=== PATIENT | male | born 2000 | race Two or more races ===

== ENCOUNTER 2023-05-11 18:57 | Emergency (ER) | payer MEDICAID, SELFPAY ==
[2023-05-11 19:07] VITALS: BP 138/70; PULSE 53; RESP 18; TEMP 36.4; O2SAT 96; BMI 24.1
--- NOTE | 2023-05-11 19:08 | ED.SKABFB ---
HPI - Skin/Abscess/Foreign Bdy General Chief complaint: Skin/Abscess/Foreign Body Stated complaint: Cyst Time Seen by Provider: 05/11/23 21:19 Source: patient Mode of arrival: ambulatory Limitations: no limitations History of Present Illness MD complaint: abscess/boil Onset (ago): day(s) (Last few days worse today) Location: buttocks (Pilonidal aspect) Severity: severe Severity scale (1-10): >10 Quality: aching and constant Pain Consistency: constant Relieving factors: none Exacerbating factors: palpation, movement and other (Or sitting down) Context: none Associated symptoms: denies other symptoms Treatments prior to arrival: none Related Data Previous Rx's Medication Instructions Recorded cephalexin 500 mg capsule 500 mg PO Q6H 10 days #40 caps 05/11/23 doxycycline hyclate 100 mg tablet 100 mg PO BID 10 days #20 tabs 05/11/23 ibuprofen 800 mg tablet 800 mg PO Q8H PRN pain #14 tabs 05/11/23 oxycodone 5 mg tablet 5 mg PO Q6H PRN pain #10 tabs 05/11/23 Allergies Allergy/AdvReac Type Severity Reaction Status Date / Time No Known Allergies Allergy Verified 05/11/23 19:07 Review of Systems Review of Systems: Constitutional : Denies history of same, Denies any other sites involved, Denies IV drug use, Denies history of MRSA, Denies swollen glands, Denies injury, Denies Fever, Denies Chills, + Sig Pain, Denies Systemic symptoms Cardiovascular : No Chest Pain, No SOB Respiratory : No Dyspnea Gastrointestinal : No abdominal pain Musculoskeletal : No Joint Swelling Skin : + abscess with surrounding erythema, No skin laceration, No Foreign bodies, No spreading rash, Denies bites, Denies discharge, Neuro : No Weakness, No Numbness/tingling Psych : No SI/HI/thoughts of self injury Yes all other systems are reviewed and are negative PMFSH Past Medical History Attestation statement: The following information was validated with the patient. Source: old records reviewed and nursing notes reviewed Social History Social History Advance Directives: No Advance Directives Information Provided: No Physical Exam Vital Signs: Vital Signs: Last Vital Signs Temp 97.5 F 05/11/23 19:07 Pulse 53 05/11/23 19:07 Resp 18 05/11/23 19:07 BP 138/70 05/11/23 19:07 Pulse Ox 96 05/11/23 19:07 O2 Del Method Room Air 05/11/23 19:07 BMI result Body Mass Index 24.1 vital signs have been reviewed as normal and appeared to be correct. Blood pressure normal Heart rate normal. Respiration rate normal. Temperature normal. Oxygen saturation normal. Appearance: Alert. Oriented X3. No acute distress. Head: Normal external exam. Normocephalic. Atraumatic. Eyes: PERRLA. EOMI. Conjunctiva and sclera normal. Eyelids normal. ENT: Pharynx normal. Uvula midline. Moist mucous membranes. Neck: Normal inspection. Neck supple. FROM. CVS: Normal heart rate and rhythm. Respiratory: No respiratory distress. Painless inspiration. Skin: Skin warm and dry. Normal skin color. Normal skin turgor. Patient with large pilonidal abscess with mild surrounding erythema. No streaking noted. No active drainage noted. No additional rashes/lesions/lacerations noted. Extremities: Extremities exhibit normal range of motion. Extremities nontender. Neuro: Oriented X 3. No motor deficit. No sensory deficit. Reflexes normal. Normal steady gait. No focal neuro deficits noted. Vascular: + radial pulses/+ 2 distal pedal pulses/+2 dorsalis pedis b/l. Normal cap refill. No cyanosis noted to upper extremity nails and lower extremity toes nails. Course Course Course Narrative: IMP/Plan: abscess. No systemic toxicity, and pt looks well. + surrounding cellulitis. Not c/w nec fasc/ myositis/ DVT/ osteomyelitis. patient now status post I&D of abscess and patient tolerated procedure well. No complications. No labs or imaging indicated at this time. Will DC home antibiotics and symptomatic treatment instructions return if any new or worsening symptoms to follow up with primary care provider. Patient understands agrees this plan. Medications Administered Discontinued Medications Generic Name Dose Route Start Last Admin Trade Name Freq PRN Reason Stop Dose Admin Lidocaine HCl 15 ml 05/11/23 19:09 05/11/23 19:44 Lidocaine Hcl 1 % Mpf 5 Ml Vial SUBCUT 05/11/23 19:10 15 ml ONCE ONE Administration Medical Decision Making Prescription Management I considered prescription management with: Pain Medication and Antibiotic Social Determinants Patient?s care significantly limited by Social Determinants of Health including: Other Social Determinant of Health Procedures Abscess I/D Site: other (Pilonidal) Local Anesthetic: lidocaine 1% Amount of anesthesia used (mL): 10 Technique: needle aspiration and incised with blade Amount of fluid expressed (mL): 20 Sent for culture/gram staining?: No Irrigation: Yes Packing used?: iodoform (Approximately 1-2 inches) Complications: other (No complications patient tolerated procedure well) Discharge Plan Discharge Clinical Impression: Pilonidal abscess Patient Disposition: Home, Self-Care Instructions: Pilonidal Cyst (ED) Prescriptions: New doxycycline hyclate 100 mg tablet 100 mg PO BID 10 Days Qty: 20 0RF cephalexin 500 mg capsule 500 mg PO Q6H 10 Days Qty: 40 0RF ibuprofen 800 mg tablet 800 mg PO Q8H PRN (Reason: pain) Qty: 14 0RF oxycodone 5 mg tablet 5 mg PO Q6H PRN (Reason: pain) Qty: 10 0RF Rx Instructions: Partial Fill upon patient request. Referrals: [facility] [Provider Group] - 2 days (Call tomorrow to make a follow-up appointment within 2 days if you can make an appointment with them you do not need to follow-up with us if you cannot you can follow-up with us although still make an appointment with them so they can continue following your wound) Sanjana Fletcher PA [Emergency Midlevel Provider] - 2 days (for wound check/packing removal) Stand Alone Forms: Work/School Release
[2023-05-11] MEDS: Lidocaine HCl 1 % MPF 5 ML VIAL 15 ML SUBCUT (19:44)
[2023-05-11] MEDS: Ibuprofen 800 MG TABLET PO (21:29)
[2023-05-11] MEDS: cephALEXin 500 MG CAPSULE PO (21:29)
[2023-05-11] MEDS: Doxycycline Monohydrate 100 MG CAPSULE PO (21:29)
--- NOTE | 2023-05-11 21:37 | PC.NURSE ---
pt refused Oxy 5mg- wasted with Lindsey, RN
== END 2023-05-11 21:37 | disposition home or self-care (01) ==
PROVIDERS: Emergency Provider Emergency Medicine
DX: L05.01 Pilonidal cyst with abscess (principal)
CPT/HCPCS: 10080; 99283

== ENCOUNTER 2023-05-14 05:58 | Emergency (ER) | payer MEDICAID, SELFPAY ==
[2023-05-14 06:09] VITALS: BP 124/46; PULSE 61; RESP 16; TEMP 37.1; O2SAT 97; BMI 24.0
--- NOTE | 2023-05-14 07:10 | ED_ITS ---
HPI - Skin/Abscess/Foreign Bdy General Chief complaint: Skin/Abscess/Foreign Body Stated complaint: wound check Time Seen by Provider: 05/14/23 06:37 Source: patient Mode of arrival: ambulatory Limitations: no limitations History of Present Illness HPI narrative: This is a 23-year-old male presenting for packing removal, patient was seen here on 05/11/2023 was told he had a pilonidal cyst, had an incision and drainage and packing was applied. Patient has no medical complaints. States he is feeling much better. Has follow-up with outpatient providers. Denies fevers, chills, numbness, tingling. Related Data Previous Rx's Medication Instructions Recorded cephalexin 500 mg capsule 500 mg PO Q6H 10 days #40 caps 05/11/23 doxycycline hyclate 100 mg tablet 100 mg PO BID 10 days #20 tabs 05/11/23 ibuprofen 800 mg tablet 800 mg PO Q8H PRN pain #14 tabs 05/11/23 oxycodone 5 mg tablet 5 mg PO Q6H PRN pain #10 tabs 05/11/23 Allergies Allergy/AdvReac Type Severity Reaction Status Date / Time No Known Allergies Allergy Verified 05/11/23 19:07 Review of Systems Review of Systems: Constitutional : No Weight loss, No Fever, No Chills, No Fatigue, No Malaise ENT/Mouth : No sore throat, No Rhinorrhea Eyes: No Eye Pain, No Swelling, No Redness Cardiovascular : No Chest Pain, No SOB, No Dyspnea on Exertion, No Orthopnea, No Edema, No Palpitations Respiratory : No Cough, No Sputum, No Wheezing Gastrointestinal : No Nausea, No Vomiting, No Diarrhea, No Constipation, No abdominal Pain, No Hematochezia, No Melena Genitourinary : No Dysuria, No Urinary Frequency, No Hematuria, Musculoskeletal : No joint pain, No Myalgias, No Joint Swelling Skin : No Skin Lesions, No rash, + abscess Neuro : No Weakness, No Numbness, No Dizziness, No Headache Psych : No Anxiety/Panic, No Depression All other systems reviewed and are negative Yes all other systems are reviewed and are negative [facility] Past Medical History Attestation statement: The following information was validated with the patient. Source: old records reviewed and nursing notes reviewed Social History Social History Advance Directives: No Advance Directives Information Provided: No Physical Exam Vital Signs: Vital Signs: Last Vital Signs Temp 98.8 F 05/14/23 06:09 Pulse 61 05/14/23 06:09 Resp 16 05/14/23 06:09 BP 124/46 L 05/14/23 06:09 Pulse Ox 97 05/14/23 06:09 O2 Del Method Room Air 05/14/23 06:09 BMI result Body Mass Index 24.0 vss Appearance: Alert.? Oriented X3.? No acute distress.? Head: Normocephalic, atraumatic, no step-offs or deformities Eyes: Pupils equal, round and reactive to light.? ENT: Pharynx normal.? Neck: Normal inspection.? Neck supple.? CVS: Normal heart rate and rhythm.? Pulses normal.? Respiratory: No respiratory distress.? Breath sounds normal.? Abdomen: Soft and nontender.? Skin: Skin warm and dry.? Normal skin color.? Normal skin turgor.?+ large pilonidal healing cyst with no surrounding erythema, packing in place. No streaking noted. No active drainage noted. Extremities: No lower extremity edema.? No calf ttp. 5/5 strength to bilateral upper and lower extremities Back: No midline tenderness, no C-spine tenderness, full range of motion, no CVA tenderness bilaterally Neuro: Oriented X 3.? No motor deficit.? No sensory deficit. CN 2-12 intact Course Reevaluation(s) Reevaluation #1: Patient currently on doxycycline encouraged him to come please his antibiotics fully without missing any doses. Advised him to follow-up with outpatient providers. Educated patient on diagnosis and treatment plan, answered all question, patient verbalizes understanding. At this time patient will be discharged home, advised to return with new or worsening symptoms. Educated on worrisome signs and symptoms and when to return. At this time I feel comfortable discharge home. Time: 07:13 Medical Decision Making Medical Decision Making [facility] Narrative: 07 23-year-old male presents for packing removal. No medical complaints. Physical exam significant for large pilonidal healing cyst with no surrounding erythema, packing in place. No streaking noted. No active drainage noted. This is likely a healing pilonidal cyst, no signs of erythema, necrotizing inf ection. Unlikely gangrene, osteomyelitis. Patient well appearing. Plan at this time packing removal. Differential Diagnosis Differential Diagnoses: The differential diagnosis associated with the presentation includes This is likely a healing pilonidal cyst, no signs of erythema, necrotizing infection. Unlikely gangrene, osteomyelitis. Admission/Observation Consideration of admission/observation: Escalation of care including admission/observation considered Unlikely Core Measures AMI core measures followed: Yes Measure exclusions: not indicated Discharge Plan Discharge Clinical Impression: Abscess packing removal Patient Disposition: Home, Self-Care Additional Instructions: Take your medications as prescribed. If you were prescribed antibiotics today, it is important that you take your medication to their entirety, do not skip any doses, do not finish them early. Follow-up with your primary care provider this week. Follow-up with general surgery. Return to the emergency department with new or worsening symptoms. Such as fevers, chills, chest pain, shortness of breath, nausea, vomiting, dizziness, headache, vision changes, lethargy In case of emergency call 911 Continue your antibiotics. Prescriptions: No Action doxycycline hyclate 100 mg tablet 100 mg PO BID 10 Days Qty: 20 0RF cephalexin 500 mg capsule 500 mg PO Q6H 10 Days Qty: 40 0RF ibuprofen 800 mg tablet 800 mg PO Q8H PRN (Reason: pain) Qty: 14 0RF oxycodone 5 mg tablet 5 mg PO Q6H PRN (Reason: pain) Qty: 10 0RF Rx Instructions: Partial Fill upon patient request. Referrals: Physician,Unknown J [Primary Care Provider] - 2 days Stand Alone Forms: Work/School Release
== END 2023-05-14 07:23 | disposition home or self-care (01) ==
PROVIDERS: Emergency Provider Emergency Medicine
DX: Z48.00 Encounter for change or removal of nonsurgical wound dressing (principal); L05.91 Pilonidal cyst without abscess
CPT/HCPCS: 99282

== ENCOUNTER 2023-06-03 22:16 | Emergency (ER) | payer OTHER, MEDICAID, SELFPAY ==
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
[2023-06-03 22:26] VITALS: BP 138/64; PULSE 70; O2SAT 98
[2023-06-03 22:37] VITALS: BP 126/67; PULSE 65; RESP 16; TEMP 37.4; O2SAT 95; BMI 24.4
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
== END 2023-06-04 01:15 | disposition home or self-care (01) ==
PROVIDERS: Emergency Provider Emergency Medicine
DX: S13.4XXA Sprain of ligaments of cervical spine, initial encounter (principal); M54.2 Cervicalgia; V43.62XA Car passenger injured in collision with other type car in traffic accident, initial encounter; Y93.9 Activity, unspecified; Y92.410 Unspecified street and highway as the place of occurrence of the external cause; Y99.9 Unspecified external cause status
CPT/HCPCS: 72125; 99284

== ENCOUNTER 2023-12-14 14:26 | Emergency (ER) | payer SELFPAY ==
--- NOTE | ~2023-12-14 | XR_ITS ---
EXAMINATION: XR CHEST CLINICAL INFORMATION: Productive cough COMPARISON: None available. TECHNIQUE: 2 views of the chest were obtained. FINDINGS: No significant abnormality is noted involving the heart, lungs, mediastinum, bony thorax or soft tissues. XR/XR chest 2V IMPRESSION: Unremarkable examination.
--- NOTE | 2023-12-14 14:46 | ED_ITS ---
HPI - Nausea/Vomiting/Diarrhea General Chief complaint: General Medical Stated complaint: Nausea, diarrhea, congestion Time Seen by Provider: 12/14/23 15:12 Source: patient Mode of arrival: ambulatory Limitations: no limitations History of Present Illness HPI Narrative: 23-year-old male previously healthy here with complaints of 4 days of cough and congestion, body aches, nausea and diarrhea. No recent travel or sick contact. No abdominal pain, chest pain, shortness of breath, headache, fever, neck pain, neck stiffness, skin rash. Associated nausea: Yes Related Data Previous Rx's Medication Instructions Recorded cephalexin 500 mg capsule 500 mg PO Q6H 10 days #40 caps 05/11/23 doxycycline hyclate 100 mg tablet 100 mg PO BID 10 days #20 tabs 05/11/23 ibuprofen 800 mg tablet 800 mg PO Q8H PRN pain #14 tabs 05/11/23 oxycodone 5 mg tablet 5 mg PO Q6H PRN pain #10 tabs 05/11/23 Allergies Allergy/AdvReac Type Severity Reaction Status Date / Time No Known Allergies Allergy Verified 12/14/23 14:45 Review of Systems Review of Systems: Yes all other systems are reviewed and are negative Constitutional: Constitutional: Reports no additional constitutional complaints, Reports body ache(s), Denies chills, Denies fever(s), Denies headache(s) and Denies weakness Eyes: Eyes: Reports no additional eye complaints and Denies change in vision ENT: Reports system reviewed and no additional complaints, except as documented, Denies dizziness, Denies headache(s), Reports nasal congestion, Denies nasal discharge and Denies neck pain Cardiovascular: Cardiovascular: Reports no additional cardiovascular complaint s, Denies chest pain, Denies leg edema and Denies dyspnea Respiratory: Respiratory: Reports no additional respiratory complaints, Reports cough and Denies dyspnea Gastrointestinal: Gastrointestinal: Reports no additional gastrointestinal complaints, Denies abdominal pain, Reports diarrhea, Reports nausea and Denies vomiting Genitourinary: Genitourinary: Denies urinary incontinence Musculoskeletal: Musculoskeletal: Reports no additional musculoskeletal complaints, Denies back pain, Denies arthralgias, Denies joint swelling, Denies neck pain, Denies numbness and Denies tingling Integumentary/Breasts: Skin/Breast: Reports system reviewed and no additional complaints, except as docu and Denies rash Neurologic: Reports system reviewed and no additional complaints, except as documented, Denies Abnormal speech present, Denies dizziness, Denies headache(s), Denies numbness, Denies tingling and Denies weakness PMFSH Past Medical History Attestation statement: The following information was validated with the patient. Source: old records reviewed and nursing notes reviewed Social History Social History Alcohol intake: current Alcohol intake frequency: holidays/special occasions only Substance Use Type: Marijuana Advance Directives: No Advance Directives Information Provided: No Physical Exam Vital Signs: Vital Signs: Last Vital Signs Temp 98.3 F 12/14/23 14:47 Pulse 63 12/14/23 14:47 Resp 14 12/14/23 14:47 BP 121/63 12/14/23 14:47 Pulse Ox 98 12/14/23 14:47 BMI result Body Mass Index 23.6 Const: General: cooperative, healthy appearing, comfortable and no acute distress Orientation/consciousness: patient oriented x3 Limitations: no limitations HEENT: Head: Yes normal to inspection Ears: hearing grossly normal bilaterally and TM's normal bilaterally General nose exam: Normal external nose present Face and sinus: Yes normal facial exam Mouth: Normal oral and palatal mucosa present Throat: Yes posterior oropharynx normal, Yes tonsils normal and Yes uvula midline Eyes: General: appearance normal, both eyes and all related structures Pupils: Equal, round and reactive pupils present Neck: Neck: Yes normal visual inspection, Yes full ROM, Yes no lymphadenopathy and Yes no meningeal signs Chest: Chest palpation & inspection: normal inspection of the chest Resp: Effort & Inspection: normal respiratory effort Auscultation: clear to auscultation bilaterally Cardio: Rate: regular rate Rhythm: regular rhythm Peripheral pulses: Peripheral pulses 2+ throughout GI: Inspection: Yes normal to inspection Palpation (GI): Soft to palpation and nontender Auscultation: normal bowel sounds Back/Spine/Pelvis: Thoracic/Lumbar Spine: thoracic and lumbar spine normal to inspection Skin: General skin exam: no rashes or lesions noted Neuro: General: patient oriented x3, no meningeal signs, no focal motor deficits and normal sensation to monofilament Cranial nerves: Yes Equal, round and reactive pupils present Cognition (Neuro): normal cognition Speech: No Abnormal speech present Gait exam (Neuro): Normal gait present Motor exam (neuro): 5/5 motor strength present throughout Extrem: General: Yes normal to inspection, Yes no pedal edema and Yes no calf tenderness Course Course Course Narrative: RME:?23 yo male here for eval of congestion, subjective fevers, chills, productive cough, nausea, and diarrhea x4 days. sick contacts at home. taking ibuprofen and delsum without relief, last dose of ibuprofen 2 hours ago. denies vomiting. viral swabs, CXR ordered. Full HPI, ROS and PE to be performed by the primary ED provider. Reevaluation(s) Reevaluation #1: Viral testing is negative. Chest x-ray shows no acute finding. Likely viral syndrome. Patient well-appearing, afebrile, nontoxic. Patient be discharged home with recommendations for supportive care. Reviewed worrisome signs and symptoms of when to return to the emergency room. Comfortable plan for discharge home. Medical Decision Making Medical Decision Making [facility] Narrative: 23-year-old male previously healthy here with complaints of 4 days of cough and congestion, body aches, nausea and diarrhea. No recent travel or sick contact. No abdominal pain, chest pain, shortness of breath, headache, fever, neck pain, neck stiffness, skin rash. Exam is benign. VSS Will send viral testing, review CXR from triage Differential Diagnosis Differential Diagnoses: The differential diagnosis associated with the presentation includes viral syndrome, influenza Admission/Observation Consideration of admission/observation: Escalation of care including admission/observation considered Lab Data [facility] Lab Attestation statement: I reviewed the patient's lab results. Labs: Lab Results 12/14/23 Range/Units 14:52 Influenza Type A (PCR) NEGATIVE (Negative) Influenza Type B (PCR) NEGATIVE (Negative) RSV RNA Qual (PCR) NEGATIVE (Negative) SARS-CoV-2 RNA (RT-PCR) NEGATIVE (Negative) Independent Interpretation I performed an independent interpretation of an: Plain X-Ray Interpretation: I independently reviewed the x-ray and agree with the rad report Radiology Impression Discussion of test interpretation with radiology: I have reviewed the radiologist's reading. Radiologist Impression: Productive cough COMPARISON: None available. TECHNIQUE: 2 views of the chest were obtained. FINDINGS: No significant abnormality is noted involving the heart, lungs, mediastinum, bony thorax or soft tissues. XR/XR chest 2V IMPRESSION: Unremarkable examination. Tests considered The following testing was considered but not selected: no focal abdominal pain to suggest need to CT A/P Prescription Management I considered prescription management with: Antibiotic Discharge Plan Discharge Clinical Impression: Acute viral syndrome Patient Disposition: Home, Self-Care Instructions: Viral Syndrome (ED) Additional Instructions: Testing for COVID, flu, RSV are negative. Your chest x-ray shows no signs of infection. You likely have a virus. Please alternate Motrin Tylenol for any pain or fever. Increase fluids, rest. Please return for any worsening symptoms. Prescriptions: No Action doxycycline hyclate 100 mg tablet 100 mg PO BID 10 Days Qty: 20 0RF cephalexin 500 mg capsule 500 mg PO Q6H 10 Days Qty: 40 0RF ibuprofen 800 mg tablet 800 mg PO Q8H PRN (Reason: pain) Qty: 14 0RF oxycodone 5 mg tablet 5 mg PO Q6H PRN (Reason: pain) Qty: 10 0RF Rx Instructions: Partial Fill upon patient request. Referrals: Physician,None [Primary Care Provider] - 5 days Stand Alone Forms: Work/School Release Interventions: ED Discharge Assessment Last Done: 12/14/23 16:09 Discharge Date/Time: 12/14/23 16:09
[2023-12-14 14:47] VITALS: BP 121/63; PULSE 63; RESP 14; TEMP 36.8; O2SAT 98; BMI 23.6
[2023-12-14 15:55] LABS: Influenza A PCR NEGATIVE (Negative); Influenza B PCR NEGATIVE (Negative); Resp Syncy Virus RNA Qual PCR NEGATIVE (Negative); SARS COV2 PCR INHOUSE NEGATIVE (Negative)
== END 2023-12-14 16:09 | disposition home or self-care (01) ==
PROVIDERS: Physician Assistant Medical; Emergency Provider Emergency Medicine
DX: B34.9 Viral infection, unspecified (principal); R11.2 Nausea with vomiting, unspecified; R05.9 Cough, unspecified; R09.81 Nasal congestion; Z20.822 Contact with and (suspected) exposure to COVID-19; Z20.828 Contact with and (suspected) exposure to other viral communicable diseases
CPT/HCPCS: 0241U; 71046; 99282; 99283

== ENCOUNTER 2024-10-31 14:23 | Emergency (ER) | payer MEDICAID, SELFPAY ==
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
[2024-10-31 15:46] VITALS: BP 126/73; PULSE 56; RESP 18; TEMP 36.8; O2SAT 100; BMI 23.2
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
[2024-10-31 18:38] VITALS: BP 126/73; PULSE 56; RESP 18; TEMP 36.8; O2SAT 100
[2024-10-31] MEDS: Ibuprofen 800 MG TABLET PO (19:06)
[2024-10-31 19:07] VITALS: BP 126/73; PULSE 56; RESP 18; TEMP 36.8; O2SAT 100
== END 2024-10-31 19:08 | disposition home or self-care (01) ==
PROVIDERS: Emergency Provider Emergency Medicine Emergency Medical Services
DX: S62.603A Fracture of unspecified phalanx of left middle finger, initial encounter for closed fracture (principal); M79.642 Pain in left hand; Y04.2XXA Assault by strike against or bumped into by another person, initial encounter; Y93.89 Activity, other specified; Y92.89 Other specified places as the place of occurrence of the external cause; Y99.8 Other external cause status
CPT/HCPCS: 29130; 73110; 73130; 99283; 99284

== ENCOUNTER 2024-11-03 13:08 | Outpatient (REF) | payer MEDICAID, SELFPAY ==
--- NOTE | ~2024-11-03 | XR_ITS ---
EXAMINATION: XR HAND, LEFT CLINICAL INFORMATION: M79.642 - Pain in left hand COMPARISON: 10/31/2024. TECHNIQUE: PA, lateral, and oblique views of the left hand. FINDINGS: Redemonstration of nondisplaced buckle fracture along the base of the third proximal phalanx. Bone mineralization is normal. Alignment is maintained. XR/XR hand LT min 3V IMPRESSION: Redemonstration of nondisplaced buckle fracture along the base of the third proximal phalanx. Electronically signed by: Deepthi Cabrera MD 11/08/2024 12:15 PM LEYDI LOPEZ
== END 2024-11-03 13:09 | disposition home or self-care (01) ==
LOC: HO.HOSX 13:08
DX: M79.642 Pain in left hand (principal); S62.643D Nondisplaced fracture of proximal phalanx of left middle finger, subsequent encounter for fracture with routine healing
CPT/HCPCS: 73130; 99212

== ENCOUNTER 2024-11-03 13:53 | Outpatient (AMB) | payer MEDICAID, SELFPAY ==
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
== END 2024-11-03 14:35 | disposition home or self-care (01) ==
DX: S62.613A Displaced fracture of proximal phalanx of left middle finger, initial encounter for closed fracture (principal)
CPT/HCPCS: 99203

== ENCOUNTER 2024-12-03 07:02 | Outpatient (REF) | payer MEDICAID, SELFPAY | END 2024-12-03 07:03 | disposition home or self-care (01) | LOC: HO.HOSX 07:02 | DX: Z13.89 Encounter for screening for other disorder (principal) ==